=== PATIENT | female | born 1995 | race African-American/Black ===

== ENCOUNTER 2017-05-22 15:19 | Emergency (ER) | payer MEDICAID, OTHER ==
[~2017-05-22] VITALS: Ht 162.6 cm; Wt 55.0 kg
[2017-05-22 15:40] VITALS: BP 113/59
== END 2017-05-22 21:36 | disposition left against medical advice (07) ==
LOC: ER 21:24
DX: H57.9 Unspecified disorder of eye and adnexa (principal); Z53.21 Procedure and treatment not carried out due to patient leaving prior to being seen by health care provider

== ENCOUNTER 2023-12-02 18:53 | Emergency (ER) | payer OTHER ==
[~2023-12-02] VITALS: Ht 170.2 cm; Wt 70.0 kg
[2023-12-02 18:54] VITALS: PULSE 84
[2023-12-02 19:01] VITALS: BP 121/81; RESP 16; TEMP 98.8; O2SAT 98
== END 2023-12-02 22:09 | disposition home or self-care (01) ==
LOC: ER 18:53
DX: H92.22 Otorrhagia, left ear (principal); F12.90 Cannabis use, unspecified, uncomplicated; Z98.890 Other specified postprocedural states
CPT/HCPCS: 99281

== ENCOUNTER 2025-08-09 23:22 | Emergency (ER) | payer MEDICAID ==
[~2025-08-09] VITALS: Ht 165.1 cm; Wt 69.0 kg
[2025-08-09 23:39] VITALS: O2SAT 99
[2025-08-09 23:41] VITALS: BP 117/72; TEMP 36.8
[2025-08-10 00:38] LABS: BASOPHILS % 0.7 % (0.0-2.0); EOSINOPHILS % 0.0 % (0.0-5.0); HEMATOCRIT. 39.7 % (36.0-48.0); HEMOGLOBIN. 13.4 g/dL (12.0-16.0); LYMPHOCYTES % 39.4 % (20.0-50.0); MEAN PLATELET VOLUME 8.9 fl (7.4-10.4); MONOCYTES % 9.2 % (2.0-8.0); NEUTROPHILS % 50.7 % (40.0-76.0); PLATELET 258 x1000/uL (130-400); RED BLOOD CELL COUNT 4.60 mill/uL (4.2-5.4); RED CELL DISTRIBUTION WIDTH 13.1 % (11.6-14.6)
[2025-08-10 00:51] LABS: CREATININE 1.0 mg/dL (0.6-1.0); UREA NITROGEN BLOOD 8 mg/dL (9-23)
[2025-08-10 00:53] LABS: TROPONIN I HIGH SENSITIVITY < 4 ng/L (3.0-34)
[2025-08-10 00:58] LABS: HCG SCREEN NEGATIVE
[2025-08-10] MEDS: PREDNISONE 20MG TABLET PO ONE (01:11)
[2025-08-10] MEDS: IPRATROPIUM/ALBUTEROL 0.5-3(2.5)MG/3ML NEB HHN ONE (01:50)
[2025-08-10 01:51] VITALS: PULSE 65; RESP 16; O2SAT 100
[2025-08-10] MEDS ORDERED: P50 MT (02:06)
== END 2025-08-10 02:38 | disposition home or self-care (01) ==
LOC: ER 23:22
DX: R07.89 Other chest pain (principal); R06.02 Shortness of breath; Z79.52 Long term (current) use of systemic steroids; Z86.19 Personal history of other infectious and parasitic diseases
CPT/HCPCS: 36415; 71045; 93005; 99285; 80048; 84703; 83880; 85025; 84484; 94640; 98960; J7512; Z7610 ×3; 94070; 94664